=== PATIENT | male | born 1955 | race Caucasian/White ===

== ENCOUNTER 2018-04-27 10:34 | Outpatient (CLI) | payer MEDICARE ==
--- NOTE | 2018-04-27 12:36 | RAD ---
KUB: HISTORY: Calculus of the kidney. COMPARISON: None. FINDINGS: Single view abdomen shows a nonspecific, nonobstructed bowel gas pattern. There are calcifications p rojecting over both kidneys, the largest seen on the right, measuring 10 mm in size. Hardware is see n in the right femur. Vascular calcifications are seen. IMPRESSION: Bilateral nephrolithiasis. POS: JODY
== END 2018-04-27 10:35 | disposition home or self-care (01) ==
LOC: RAD 10:34
PROVIDERS: ATTEND Urology
DX: N20.0 Calculus of kidney (principal)
CPT/HCPCS: 74018; 81001; 87086